=== PATIENT | female | born 1985 | race Asian ===

== ENCOUNTER → 2024-02-11 13:32 | Outpatient (CLI) | payer OTHER, MEDICAID, SELFPAY ==
--- NOTE | 2024-02-11 13:33 | DI.US.S_ITS ---
PROCEDURE: US PELVIC COMPLETE INDICATIONS: OVARIAN CYSTS; ENDOMETRIOSIS TECHNIQUE: Real-time scanning was performed of the pelvic organs, with image documentation. Additional endovaginal scanning was necessary due to incomplete visualization of the adnexal and endometrial structures by transabdominal scanning. COMPARISON: None. FINDINGS: Uterus: Uterus is anteverted and normal in size at 12 cm. The myometrium is heterogeneous. The endometrium measures 12 mm combined thickness. Cervix and vagina are within normal limits. Multiple uterine fibroids as follows: -left anterior subserosal/pedunculated, measures 2.3 x 2.5 x 2.8 cm -mid posterior intramural, measures 1.3 x 1.5 x 1.9 cm. -mid posterior intramural, measures 2.1 x 1 x 1.6 cm Ovaries: The right ovary measures 6.5 x 3.4 x 4.1 cm, with a calculated ovarian volume of 47 cc. The left ovary measures 5 x 3.3 x 2.8 cm, with a calculated ovarian volume of 23.9 cc. Right ovary demonstrates a simple cyst measuring 2.8 x 4 x 3.1 cm. Right ovary demonstrates a solid mass with low level internal echoes measuring 3 x 2.1 x 3.2 cm. Left ovary demonstrates a complex cystic lesion measuring 2.1 x 2.8 x 1.7 cm. Left ovary demonstrates a solid mass with low level internal echoes measuring 1.5 x 1.6 x 1.5 cm. Less than 12 follicles can be seen in each ovary. Other: No pathologic free abdominal or pelvic fluid. IMPRESSION: 1. Fibroid uterus with largest measuring 2.3 x 2.5 x 2.8 cm which is subserosal/pedunculated. 2. Myometrium is heterogeneous which may reflect adenomyosis. 3. Bilateral ovaries demonstrate solid masses with low level internal echoes which may represent endometriomas versus hemorrhagic cysts. Recommend repeat ultrasound in 6-10 weeks. 4. Complex left ovarian cystic lesion measuring 2.1 x 2.8 x 1.7 cm which may reflect a hemorrhagic cyst. Attention on follow-up ultrasound. We strive to produce accurate, complete, and clear reports of imaging services. To assist us in improving patient care, this report was composed using standard report templates and voice recognition software. Therefore, it may contain abnormal punctuation, insertions and/or omissions. Occasional wrong-word or sound-alike substitutions may occur. Though we review the report and make efforts to correct it, we do recommend that the report be read carefully in proper context to recognize any text inaccuracies. Dictated by: Leida Baum M.D. on 02/11/2024 at 16:16 Approved by: Leida Baum M.D. on 02/11/2024 at 16:19
== END ==
LOC: US 13:33
PROVIDERS: PCP Family Medicine; Referring Provider Family Medicine; Visit Provider Family Medicine
DX: N80.9 Endometriosis, unspecified (principal); D25.2 Subserosal leiomyoma of uterus; D25.1 Intramural leiomyoma of uterus; N83.291 Other ovarian cyst, right side; N83.292 Other ovarian cyst, left side; N83.9 Noninflammatory disorder of ovary, fallopian tube and broad ligament, unspecified
CPT/HCPCS: 76830; 76856; 93975

== ENCOUNTER → 2024-03-26 12:36 | Outpatient (CLI) | payer OTHER, MEDICAID, SELFPAY ==
--- NOTE | 2024-03-26 12:38 | DI.RAD.S_ITS ---
PROCEDURE: XR FOOT RT MIN 3V INDICATIONS: f/u on impact injury-pain/swelling ball and top of foot TECHNIQUE: 3 views of the foot were acquired. COMPARISON: None. FINDINGS: Bones: No fractures or dislocations. Normal alignment on nonweightbearing view. No suspicious bony lesions. Soft tissues: No tibiotalar joint effusion. Achilles tendon appears normal. No radiopaque foreign body. IMPRESSION: No acute bony abnormality. If clinical symptoms persist, consider repeat radiograph in 10-14 days versus cross-sectional imaging. Dictated by: Leida Baum M.D. on 03/26/2024 at 16:33 Approved by: Leida Baum M.D. on 03/26/2024 at 16:35
== END ==
PROVIDERS: PCP Family Medicine; Referring Provider Physician Assistant; Visit Provider Physician Assistant
DX: S90.31XA Contusion of right foot, initial encounter (principal); X58.XXXA Exposure to other specified factors, initial encounter
CPT/HCPCS: 73630